=== PATIENT | female | born 1960 | race Caucasian/White ===

== ENCOUNTER 2019-04-01 07:36 | Outpatient (CLI) | payer SELFPAY ==
[2019-04-01] VITALS (7 sets, daily range): BP systolic 106–119; BP diastolic 62–92; PULSE 55–63; RESP 16–18; TEMP 36.1; O2SAT 94–100
--- NOTE | 2019-04-01 07:39 | DI.RAD.S_ITS ---
PROCEDURE: PAIN C/T INTERLAMINAR INJECT INDICATIONS: RADICULOPATHY FINDINGS: Fluoroscopic spot filming was performed to verify placement of spinal needles at the C6-C7 level(s), as labeled on the films. Appropriate location(s) of the needle tip(s) was confirmed by injection of iodinated contrast. IMPRESSION: Fluoroscopy for pain management. Dictated by: Chidi Pimentel M.D. on 04/01/2019 at 14:14 Approved by: Chidi Pimentel M.D. on 04/01/2019 at 14:14
[2019-04-01] MEDS: MIDAZOLAM 5 MG/5 ML VIAL IV (08:36)
[2019-04-01] MEDS: LIDOCAINE 1% 20 ML INJ 5 ML INJ (08:36)
[2019-04-01] MEDS: DEXAMETHASONE 10 MG/ML VIAL 20 MG INJ (08:36)
[2019-04-01] MEDS: IOPAMIDOL 15 ML VIAL 3 ML INJ (08:36)
[2019-04-01] MEDS: fentaNYL 100 MCG/2 ML INJ 50 MCG IV (08:40)
--- NOTE | 2019-04-01 08:53 | PC.NURSE ---
pt tolerated procedure and was able to get off the table with standby assist. Transferred pt via wheelchair to pre procedure room for continued monitoring with [facility].
--- NOTE | 2019-04-01 08:57 | PM.PROC.1 ---
Procedures Date/Time Date of procedure: 04/01/19 Time of procedure: 08:57 General Procedure description: PREOP DIAGNOSIS 1. CERVICAL STENOSIS, 2. CERVICAL HNP WITH UPPER EXTREMITY RADICULAR FEATURES, POST OP DIAGNOSIS 1. CERVICAL STENOSIS, 2. CERVICAL HNP WITH UPPER EXTREMITY RADICULAR FEATURES, PROCEDURES 1. FLUORSCOPICALLY GUIDED CONTRAST CONTROLLED INTERLAMINAR EPIDURAL STEROID INJECTION - C6/7 TL SAULO PHYSICIAN: DO CHRISTINA Henry is referred by ISHMAEL Hernandez for treatment of Cervical HNP with Upper Extremity Paresthesias. FINDINGS Cervical Stenosis due to disc deterioration and nerve root irritation and nerve root irritation DESCRIPTION OF PROCEDURE Fluoroscopically guided, contrast-controlled C6/7 translaminar epidural steroid injection with conscious sedation. Following denial of allergy and review of potential side effects and complications, including, but not necessarily limited to, infection, allergic reaction, local tissue breakdown, temporary as well as permanent nerve injury, stroke, paralysis, and possible , the patient indicated that patient understood and agreed to proceed. An informed consent document was signed by the patient, witnessed by a nurse, and placed in the patient's chart. Additionally, other treatment options including modalities, medications, and physical therapy were reviewed with the patient. After review of previous anaesthesic history and IV conscious sedation the patient was deemed safe to proceed with todays procedure with IV conscious sedation as ASA class II designation. Safety time-out was performed to confirm patient ID, procedure to be performed and site of procedure. IV sedation was accomplished with a combination of 3mg of Versed and 50mcg of Fentanyl administered by the RN after DO order, titrated to patient comfort during the course of the procedure while the patient remained responsive to all verbal commands. In the prone position, following sterile prep and drape of the cervical region, the C6/7 translaminar space was identified fluoroscopically. The skin was anesthetized via a 25-gauge 1.5-inch needle with 1% lidocaine solution. At this point, a 25-gauge, 2.5-inch short bevel spinal needle was atraumatically introduced and advanced under fluoroscopic guidance into epidural space at the C6/7 translaminar space. Depth was confirmed on lateral view. Radiological data, including multiple fluoroscopic views of the cervical spine, reveal a spinal needle at the C6/7 translaminar space. Lateral views then show placement of the needle in the epidural space. Subsequent views show contrast material flowing superiorly and inferiorly in the epidural space. DSA fluoroscopy with live contrast injection, once again, confirmed no vascular or intrathecal uptake. At this point, using loss of resistance technique with saline and air, the epidural space was entered. Following negative aspiration, injection of approximately 1.5 cc of Isovue-200 with live fluoroscopy in the AP view confirmed epidural flow in the epidural space without vascular or intrathecal uptake observed. Subsequently, a test dose of 1 cc of 1% lidocaine solution was injected and patient was observed for two minutes without signs or symptoms of complications, including abdominal pain, shortness of breath, bilateral upper or lower extremity weakness, nausea and vomiting, prior to steroid injection. At this point, 2cc or 20mg of dexamethasone was then injected without incident. The patient tolerated the procedure well without signs or symptoms of complications prior to being transferred to the recovery area for further monitoring, The patient was then transferred to the recovery area where they were observed for an appropriate period of time after the injection. The patient reported a VAS score of 6 prior to the procedure and a post-procedure VAS of 0. Total Fluoroscopy Time: 37.0 seconds Total Conscious Time: 24min POST OP INSTRUCTIONS The patient was provided a Pain Log to continue to record their response to the target-specific procedure prior to follow-up visit with the referring provider. Additionally, specific post-injection care instructions and a contact number to our office were provided if concerns arise regarding possible complications associated with the procedure are suspected. Levy Johnson DO Complications: none
--- NOTE | 2019-04-01 09:02 | PC.NURSE ---
ACCEPTED CARE OF PT IN POST PROC AREA IN STABLE CONDITION
[2019-04-01] MEDS: ONDANSETRON 4 MG/2 ML INJ IV (09:33)
== END 2019-04-01 09:44 | disposition home or self-care (01) ==
LOC: RAD 07:38
PROVIDERS: PCP Nurse Practitioner Family; Visit Provider Physical Medicine & Rehabilitation
DX: M48.02 Spinal stenosis, cervical region (principal); M50.123 Cervical disc disorder at C6-C7 level with radiculopathy; R20.2 Paresthesia of skin
CPT/HCPCS: 62321; 99152; J1100; J2250; J2405; J3010

== ENCOUNTER 2019-10-07 09:58 | Outpatient (CLI) | payer OTHER, SELFPAY ==
[2019-10-07] VITALS (9 sets, daily range): BP systolic 104–137; BP diastolic 53–95; PULSE 55–67; RESP 15–20; TEMP 35.8; O2SAT 93–100
--- NOTE | 2019-10-07 10:01 | DI.RAD.S_ITS ---
PROCEDURE: PAIN C/T FACET INJ/BLK 1ST L INDICATIONS: CERVICAL RADICLOPATHY FINDINGS: Fluoroscopic spot filming was performed to verify placement of spinal needles at the C5-C6, C6-C7 level(s), as labeled on the films. Appropriate location(s) of the needle tip(s) was confirmed by injection of iodinated contrast. Dictated by: Yan Elizalde M.D. on 10/07/2019 at 11:27 Approved by: Yan Elizalde M.D. on 10/07/2019 at 11:28
--- NOTE | 2019-10-07 10:25 | PC.NURSE ---
Pt took own zofran due to HX of nausea with meds
[2019-10-07] MEDS: fentaNYL 100 MCG/2 ML INJ 50 MCG IV (10:42)
[2019-10-07] MEDS: MIDAZOLAM 5 MG/5 ML VIAL IV (10:42)
[2019-10-07] MEDS: BUPIVACAINE 0.5% (PF) VIAL 2 ML INJ (10:57)
[2019-10-07] MEDS: IOPAMIDOL 15 ML VIAL 3 ML INJ (11:00)
[2019-10-07] MEDS: LIDOCAINE 1% 20 ML 5 ML INJ (11:00)
[2019-10-07] MEDS: DEXAMETHASONE 10 MG/ML VIAL 30 MG INJ (11:00)
--- NOTE | 2019-10-07 11:02 | P.PCN_ITS ---
Procedures Date/Time Date of procedure: 10/07/19 Time of procedure: 11:02 General Procedure description: PREOP DIAGNOSIS 1. FACET ARTHROPATHY 2. AXIAL NECK PAIN POST OP DIAGNOSIS 1. FACET ARTHROPATHY 2. AXIAL NECK PAIN PROCEDURES 1. FLUOROSCOPICALLY GUIDED, CONTRAST-CONTROLLED RIGHT C5/6 AND C6/7 FACET JOINT INJECTIONS WITH CONSCIOUS SEDATION. PHYSICIAN: Levy Johnson, DO INDICATIONS Latoya is referred by ISHMAEL Hernandez for treatment of Axial Neck Pain DESCRIPTION OF PROCEDURE Fluoroscopically guided, contrast-controlled right C5/6 and C6/7 facet joint injections with conscious sedation. Following review of allergy and review of potential side effects and complications, including, but not necessarily limited to, infection, allergic reaction, local tissue breakdown, stroke, temporary or permanent nerve injury and paralysis, the patient indicated that the patient understood and agreed to proceed. An informed consent document was signed by the patient, witnessed by a nurse, and placed in the patient's chart. Additionally, other treatment options including medications, modalities, and physical therapy were reviewed with the patient. After review of previous anaesthesic history and IV conscious sedation the patient was deemed safe to proceed with todays procedure with IV conscious sedation as ASA class II designation. Safety time-out was performed to confirm patient ID, procedure to be performed and site of procedure. IV sedation was accomplished with a combination of 3mg of Versed and 50mcg of Fentanyl was administered by the RN after DO order, titrated to patient comfort during the course of the procedure while the patient remained responsive to all verbal commands In the prone position, following sterile prep and drape of the cervical spine region, the posterior aspect of the right C5/6 and C6/7 facet joints were identified fluoroscopically. The skin was anesthetized via a 25-gauge 1.5-inch needle with 1% lidocaine solution into the corresponding facet joints. At this point, a 25-gauge 2.5-inch spinal needle was atraumatically introduced and advanced under fluoroscopic guidance into the corresponding facet joints. Following negative aspiration, injections of approximately 0.2-cc of Isovue 200 confirmed interarticular placement without vascular uptake. At this point, a total of 1cc including 0.5 cc or 5mg of dexamethasone combined with 0.5cc of 1% lidocaine solution was injected without complication into each of the corresponding facet joints. The procedure tolerated the procedure well without signs or symptoms of complications prior to transfer to the recovery area continued monitoring without incident. The patient was then transferred to the recovery area where they were observed for an appropriate period of time after the injection. The patient reported a VAS score of 7 prior to the procedure and a post- procedure VAS of 0. Total Fluoroscopy Time: 20.5 seconds Total Conscious Sedation Time: 24 min POST OP INSTRUCTIONS They were provided a Pain Log to continue to record their response to the target-specific procedure prior to their follow-up visit with their referring physician. Additionally, specific post-injection care instructions and a contact number to our office were provided if concerns arise regarding possible complications associated with the procedure are suspected. Levy Johnson DO
--- NOTE | 2019-10-07 11:09 | PC.NURSE ---
Post procedure note: time out at 1040. Patient medicated per providers orders. Tolerated procedure well. VSS throughout. Able to sit up and transfer to wheelchair without difficulties. Handoff report given to Marbella Price RN at 1106. Patient transferred from w/c to recliner without difficulties. No complaints of pain. 0/10 and denied any unusual numbness or tingling to upper extremities.
== END 2019-10-07 11:26 | disposition home or self-care (01) ==
PROVIDERS: Family Provider Nurse Practitioner Family; PCP Nurse Practitioner Family; Visit Provider Physical Medicine & Rehabilitation
DX: M47.812 Spondylosis without myelopathy or radiculopathy, cervical region (principal); M54.2 Cervicalgia
CPT/HCPCS: 64490; 64491; 99152; J1100; J2250; J3010

== ENCOUNTER 2019-11-04 13:35 | Outpatient (CLI) | payer OTHER, SELFPAY | END 2019-11-05 09:59 | disposition home or self-care (01) | PROVIDERS: Family Provider Nurse Practitioner Family; PCP Nurse Practitioner Family; Visit Provider Physical Medicine & Rehabilitation | DX: G56.00 Carpal tunnel syndrome, unspecified upper limb (principal); M54.12 Radiculopathy, cervical region | CPT/HCPCS: 95886; 95911 ==

== ENCOUNTER → 2020-11-27 08:42 | Outpatient (CLI) | payer SELFPAY ==
--- NOTE | 2020-11-27 08:45 | DI.RAD.S_ITS ---
PROCEDURE: XR HAND LT MIN 3V INDICATIONS: CARPAL TUNNEL TECHNIQUE: 3 views of the hand(s) acquired. COMPARISON: None. FINDINGS: Bones: No acute fractures or dislocations. Moderate degenerative changes of the left hand are noted. Degenerative changes are most pronounced in the 1st carpometacarpal joint, left thumb metacarpal and interphalangeal joints, 2nd proximal interphalangeal joint, and 3rd proximal interphalangeal joint. Subchondral lucencies involving the head of the 2nd and 3rd proximal phalanges favored to represent subchondral degenerative cysts. However, erosions not excluded. Carpal bones are normally aligned. No suspicious bony lesions. Soft tissues: No suspicious soft tissue calcifications. IMPRESSION: Degenerative changes of the left hand as detailed above. A few subchondral lucencies involving the head of the 2nd and 3rd proximal phalanges likely related to degenerative subchondral cysts; however, small osseous erosions not excluded. Dictated by: Cl Manuel M.D. on 11/27/2020 at 8:59 Approved by: Cl Manuel M.D. on 11/27/2020 at 9:16
--- NOTE | 2020-11-27 08:45 | DI.RAD.S_ITS ---
PROCEDURE: XR HAND RT MIN 3V INDICATIONS: Pain TECHNIQUE: 3 views of the hand(s) acquired. COMPARISON: None. FINDINGS: Bones: No fractures or dislocations. Carpal bones are normally aligned. No suspicious bony lesions. 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 Soft tissues: No suspicious soft tissue calcifications. IMPRESSION: 1. No fracture. No acute osseous lesion. If symptoms and/or clinical suspicion for pathology persists, further assessment with repeat radiographs (7-10 days) or advanced imaging (e.g. CT, MRI or bone scan) should be considered. 2. First CMC joint osteoarthritis. Dictated by: Neema Conner MD, PhD on 11/27/2020 at 17:03 Approved by: Neema Conner MD, PhD on 11/27/2020 at 17:04
--- NOTE | 2020-11-27 08:45 | DI.RAD.S_ITS ---
PROCEDURE: XR CERVICAL SPINE 4V OR 5V INDICATIONS: cervical radiculopathy TECHNIQUE: 6 views of the cervical spine acquired. COMPARISON: None. FINDINGS: Bones: No fractures or dislocations to the T2 level. Straightening of cervical lordosis. Multilevel cervical spondylitic changes most pronounced from C5-6 through C6-7. There are degenerative endplate changes, prominent anterior endplate osteophyte formation, and mild loss of disc space at these levels. There is also mild bilateral neural foraminal narrowing at C5-6. Soft tissues: No prevertebral soft tissue swelling. IMPRESSION: 1. Cervical spine without acute fracture. 2. Multilevel cervical spondylosis most pronounced at C5-6 and C6-7 with bilateral neural foraminal narrowing at C5-6. 3. Mild straightening of normal cervical lordosis likely related to positioning and/or concurrent muscle spasms. Dictated by: Cl Manuel M.D. on 11/27/2020 at 9:17 Approved by: Cl Manuel M.D. on 11/27/2020 at 9:19
== END ==
PROVIDERS: Family Provider Nurse Practitioner Family; PCP Nurse Practitioner Family; Referring Provider Physical Medicine & Rehabilitation; Visit Provider Physical Medicine & Rehabilitation
DX: M47.22 Other spondylosis with radiculopathy, cervical region (principal); M48.02 Spinal stenosis, cervical region; M18.11 Unilateral primary osteoarthritis of first carpometacarpal joint, right hand; G56.00 Carpal tunnel syndrome, unspecified upper limb; M19.049 Primary osteoarthritis, unspecified hand
CPT/HCPCS: 72050; 73130

== ENCOUNTER → 2020-12-12 12:25 | Outpatient (CLI) | payer OTHER, SELFPAY ==
[2020-12-12 16:24] LABS: COVID19 -Nasal RAPID Negative (Negative)
== END ==
PROVIDERS: Family Provider Nurse Practitioner Family; PCP Nurse Practitioner Family; Visit Provider Physical Medicine & Rehabilitation
DX: Z20.822 Contact with and (suspected) exposure to COVID-19 (principal)
CPT/HCPCS: 87635; C9803

== ENCOUNTER 2020-12-14 08:05 | Outpatient (CLI) | payer SELFPAY ==
[2020-12-14] VITALS (9 sets, daily range): BP systolic 117–170; BP diastolic 60–97; PULSE 66–77; RESP 10–20; TEMP 37; O2SAT 97–100
--- NOTE | 2020-12-14 08:07 | DI.RAD.S_ITS ---
PROCEDURE: PAIN C/T FACET INJ/BLK 1ST L INDICATIONS: SPINAL STENOSIS COMPARISON: [facility], , PAIN C/T FACET INJ/BLK 1ST L, 10/07/2019, 10:48. FINDINGS: Fluoroscopic spot filming was performed to verify placement of spinal needles on the right at the C4-C5, C5-C6, and C6-C7 level(s), as labeled on the films. Appropriate location(s) of the needle tip(s) was confirmed by injection of iodinated contrast. IMPRESSION: Intraprocedural examination within normal limits. Dictated by: Koffi Payton M.D. on 12/14/2020 at 11:04 Approved by: Koffi Payton M.D. on 12/14/2020 at 11:04
[2020-12-14] MEDS: fentaNYL 100 MCG/2 ML INJ 50 MCG IV (09:01)
[2020-12-14] MEDS: MIDAZOLAM 5 MG/5 ML VIAL IV (09:04)
[2020-12-14] MEDS: DEXAMETHASONE 10 MG/ML VIAL 30 MG INJ (09:07)
[2020-12-14] MEDS: BUPIVACAINE 0.5% (PF) VIAL 2 ML INJ (09:07)
[2020-12-14] MEDS: IOPAMIDOL 15 ML VIAL 3 ML INJ (09:07)
[2020-12-14] MEDS: LIDOCAINE 1% 20 ML 10 ML INJ (09:08)
--- NOTE | 2020-12-14 09:22 | P.PCN_ITS ---
Date/Time/Diagnoses Date of procedure: 12/14/20 Time of procedure: 09:22 Pre-procedure diagnosis: 1. FACET ARTHROPATHY 2. AXIAL NECK PAIN Post-procedure diagnosis: same Procedure Notes Procedure: 1. FLUOROSCOPICALLY GUIDED, CONTRAST-CONTROLLED RIGHT C4/5, C5/6 AND C6/7 FACET JOINT INJECTIONS WITH CONSCIOUS SEDATION. Indications: The patient is referred by for treatment of Axial Neck Pain Physician: Levy Johnson Total Fluoroscopy time (seconds): 8 Total sedation minutes: 14 Complications: none Procedure in detail & Post-procedure care: DESCRIPTION OF PROCEDURE Fluoroscopically guided, contrast-controlled right C5/6 and C6/7 facet joint injections with conscious sedation. Following review of allergy and review of potential side effects and complications, including, but not necessarily limited to, infection, allergic reaction, local tissue breakdown, stroke, temporary or permanent nerve injury and paralysis, the patient indicated that the patient understood and agreed to proceed. An informed consent document was signed by the patient, witnessed by a nurse, and placed in the patient's chart. Additionally, other treatment options including medications, modalities, and physical therapy were reviewed with the patient. After review of previous anaesthesic history and IV conscious sedation the patient was deemed safe to proceed with today?s procedure with IV conscious sedation as ASA class II designation. Safety time-out was performed to confirm patient ID, procedure to be performed and site of procedure. IV sedation was accomplished with a combination of 3mg of Versed and 50mcg of Fentanyl was administered by the RN after DO order, titrated to patient comfort during the course of the procedure while the patient remained responsive to all verbal commands In the prone position, following sterile prep and drape of the cervical spine region, the posterior aspect of the right C5/6 and C6/7 facet joints were identified fluoroscopically. The skin was anesthetized via a 25-gauge 1.5-inch needle with 1% lidocaine solution into the corresponding facet joints. At this point, a 25-gauge 2.5-inch spinal needle was atraumatically introduced and advanced under fluoroscopic guidance into the corresponding facet joints. Following negative aspiration, injections of approximately 0.2-cc of Isovue 200 confirmed interarticular placement without vascular uptake. At this point, a total of 1cc including 0.5cc or 5mg of dexamethasone combined with 0.5 cc of 1% lidocaine solution was injected without complication into each of the corresponding facet joints. The procedure tolerated the procedure well without signs or symptoms of complications prior to transfer to the recovery area continued monitoring without incident. The patient was then transferred to the recovery area where they were observed for an appropriate period of time after the injection. The patient reported a VAS score of 7 prior to the procedure and a post- procedure VAS of 0. POST OP INSTRUCTIONS They were provided a Pain Log to continue to record their response to the target-specific procedure prior to their follow-up visit with their referring physician. Additionally, specific post-injection care instructions and a contact number to our office were provided if concerns arise regarding possible complications associated with the procedure are suspected.
== END 2020-12-14 09:43 | disposition home or self-care (01) ==
LOC: RAD 08:06
PROVIDERS: Family Provider Nurse Practitioner Family; PCP Nurse Practitioner Family; Referring Provider Nurse Practitioner Family; Visit Provider Physical Medicine & Rehabilitation
DX: M47.812 Spondylosis without myelopathy or radiculopathy, cervical region (principal); M54.2 Cervicalgia
CPT/HCPCS: 64490; 64491; 64492; 99152; J1100; J2250; J3010